=== PATIENT | female | born 1965 | race Caucasian/White ===

== ENCOUNTER → 2016-09-09 | Outpatient (CLI) | payer BC ==
--- NOTE | 2016-09-09 08:52 | REPMRS ---
Patient History The patient states she has not had a clinical breast exam in over a year. Patient is postmenopausal and had first child at age 29. Family history of prostate cancer in father at age 50 or over. Digital Woman Screen Mammo: September 09, 2016 - Exam #: [id number] Bilateral CC and MLO view(s) were taken. Technologist: Hazel Manzo Technologist Prior study comparison: August 05, 2015, digital woman screen mammo performed at [facility]. July 30, 2014, digital woman screen mammo performed at [facility]. June 02, 2011, bilateral bilat screen digital mammo performed at [facility]. FINDINGS: The breast tissue is heterogeneously dense. This may lower the sensitivity of mammography. There has been no change in the appearance of the mammogram from the prior studies. There is a moderate amount of residual fibroglandular tissue which is fairly symmetric. There is no interval development of dominant mass, architectural distortion, or clustered microcalcification typical of malignancy. Scattered lymph nodes are seen in the axillae. No significant changes when compared with prior studies. ASSESSMENT: BI-RADS/ACR category 2 mammogram. Benign finding(s). Recommendation Routine screening mammogram in 1 year (for women over age 40). This mammogram was interpreted with the aid of an FDA-approved computer-aided dectection system. A. Negative x-ray reports should not delay biopsy if a dominant or clinically suspicious mass is present. B. Four to eight percent of cancers are not identified by mammography. C. Adenosis and dense breast may obscure an underlying neoplasm. Electronically Signed By: Beau Martin MD 09/09/16 [id number]
== END ==
LOC: M WHC 08:19
PROVIDERS: ATTEND Family Medicine
DX: Z12.31 Encounter for screening mammogram for malignant neoplasm of breast (principal)

== ENCOUNTER → 2016-11-09 | Outpatient (REF) | payer BC | LOC: M LAB REF 13:55 | PROVIDERS: ATTEND Family Medicine | DX: Z01.419 Encounter for gynecological examination (general) (routine) without abnormal findings (principal) ==

== ENCOUNTER → 2017-09-25 | Outpatient (REF) | payer BC | LOC: M LAB REF 08:50 | DX: R30.0 Dysuria (principal) | CPT/HCPCS: 87186 ==

== ENCOUNTER → 2017-11-24 | Outpatient (REF) | payer BC | LOC: M LAB REF 09:24 | DX: Z12.4 Encounter for screening for malignant neoplasm of cervix (principal) | CPT/HCPCS: G0123 ==

== ENCOUNTER → 2018-02-02 | Outpatient (CLI) | payer BC | LOC: M WHC 08:04 | DX: Z12.31 Encounter for screening mammogram for malignant neoplasm of breast (principal) | CPT/HCPCS: 77067 ==

== ENCOUNTER → 2018-03-07 | Outpatient (REF) | payer BC ==
[2018-03-07 13:24] LABS: APPEARANCE, URINE HAZY (CLEAR); BACTERIA, URINE AUTO 2+ (NEGATIVE); BILIRUBIN, URINE AUTO NEGATIVE (NEGATIVE); BLOOD, URINE BLOOD NEGATIVE (NEGATIVE); COLOR, URINE AMBER (YELLOW); GLUCOSE, URINE (UA) AUTO NEGATIVE (NEGATIVE); KETONE, URINE AUTO NEGATIVE (NEGATIVE); LEUKOCYTE ESTERASE, URINE AUTO 2+ (NEGATIVE); MUCUS, URINE SMALL (NEGATIVE); NITRITE, URINE AUTO POSITIVE (NEGATIVE); PROTEIN, URINE AUTO NEGATIVE (NEGATIVE); RBC, URINE AUTO 5 /HPF (0-3); SPECIFIC GRAVITY URINE AUTO 1.023 (1.002-1.035); SQUAMOUS EPITHELIAL CELL UR AU 2 /HPF (0-6); WBC, URINE AUTO 108 /HPF (0-3)
== END ==
LOC: M LAB REF 12:48
DX: R30.0 Dysuria (principal)
CPT/HCPCS: 81001

== ENCOUNTER 2018-05-19 08:51 | Day surgery (SDC) | payer BC ==
[2018-05-19] MEDS: NS 1,000 ML IV (09:56)
[2018-05-19] MEDS ORDERED: PROPOFOL 200 MG/20 ML VIAL As Ordered ×2 (10:15→10:22)
== END 2018-05-19 11:30 | disposition home or self-care (01) ==
LOC: M OPP 08:51
DX: Z12.11 Encounter for screening for malignant neoplasm of colon (principal); Z86.010 Personal history of colon polyps; D12.3 Benign neoplasm of transverse colon; D12.2 Benign neoplasm of ascending colon; K64.8 Other hemorrhoids; Z80.0 Family history of malignant neoplasm of digestive organs; Z78.0 Asymptomatic menopausal state
CPT/HCPCS: 45385

== ENCOUNTER 2018-10-07 17:34 | Emergency (ER) | payer BC ==
[~2018-10-07] VITALS: Ht 157.5 cm; Wt 54.1 kg
[~2018-10-07 17:34] MED LIST: HAIR1TAB5 PO; MULT1TAB10 PO; VIAC8.5C PO
--- NOTE | 2018-10-07 19:19 | REPVR ---
EXAM: US Duplex Left Upper Extremity Veins, Limited EXAM DATE/TIME: 10/07/2018 7:06 PM CLINICAL HISTORY: 52 years old, female; Pain; Arm; Left; Additional info: Discoloration TECHNIQUE: Imaging protocol: Real-time Duplex ultrasound of the Left Upper Extremity with 2-D soni scale, color Doppler flow and spectral waveform analysis. Limited exam focused on the left upper extremity veins. COMPARISON: No relevant prior studies available. FINDINGS: Left deep veins: Internal jugular, subclavian, axillary and brachial veins patent without thrombus. Normal compressibility, augmentation response and/or Doppler waveforms. Left superficial veins: Visualized cephalic and basilic veins patent without thrombus. Soft tissues: Unremarkable. IMPRESSION: No sonographic evidence of deep vein thrombosis. Electronically signed by: Lucas Henry On 10/07/2018 19:19:17 PM
[2018-10-07] MEDS ORDERED: ASPI81TA85 PO (19:33)
[2018-10-07 19:44] VITALS: BP 123/77
== END 2018-10-07 19:49 | disposition home or self-care (01) ==
LOC: M ED 17:34
DX: I73.9 Peripheral vascular disease, unspecified (principal); Z79.899 Other long term (current) drug therapy

== ENCOUNTER → 2018-11-24 | Outpatient (REF) | payer BC ==
[~2018-11-24] MED LIST changes: +ASPI81TA85 PO
[2018-11-29 14:58] LABS: HPV HYBRID CAPTURE II Negative (NEGATIVE)
== END ==
LOC: M LAB REF 13:38
PROVIDERS: ATTEND Physician Assistant Medical
DX: Z12.4 Encounter for screening for malignant neoplasm of cervix (principal)
CPT/HCPCS: 87624; G0123

== ENCOUNTER → 2020-03-08 | Outpatient (CLI) | payer BC ==
[~2020-03-08] MED LIST changes: -ASPI81TA85 PO; +ASPI81TA86 PO; -VIAC8.5C PO; +VIACTIV 500-5001 CHW PO
[2020-03-08 10:54] LABS: BASO % 0.4 % (0.0-1.0); EOS # 0.1 10^3/uL (0.0-0.5); EOS % 1.4 % (0.0-3.0); HEMATOCRIT 41.4 % (36.0-47.0); LYMPH # 1.6 10^3/uL (1.5-5.0); LYMPH % 27.5 % (24.0-44.0); MEAN CORPUSCULAR HEMOGLOBIN 33.3 pg (27.0-33.0); MEAN CORPUSCULAR HGB CONC 33.8 g/dl (32.0-36.5); MEAN CORPUSCULAR VOLUME 98.6 fl (80.0-96.0); MONO # 0.6 10^3/uL (0.0-0.8); MONO % 10.1 % (0.0-5.0); NEUTROPHILS # 3.4 10^3/uL (1.5-8.5); NEUTROPHILS % 60.2 % (36.0-66.0); PLATELET COUNT, AUTOMATED 292 10^3/uL (150-450); WHITE BLOOD COUNT 5.7 10^3/uL (4.0-10.0)
[2020-03-08 11:30] LABS: ALBUMIN 3.9 GM/DL (3.2-5.2); ALT/SGPT 18 U/L (12-78); BILIRUBIN,TOTAL 0.7 MG/DL (0.2-1.0); BLOOD UREA NITROGEN 16 MG/DL (7-18); CALCIUM LEVEL 9.1 MG/DL (8.5-10.1); CARBON DIOXIDE LEVEL 32 MEQ/L (21-32); CHLORIDE LEVEL 106 MEQ/L (98-107); CHOLESTEROL LEVEL 180 MG/DL (<200); CHOLESTEROL RISK RATIO 2.045 (<5); CREATININE FOR GFR 0.76 MG/DL (0.55-1.30); FREE T4 1.07 NG/DL (0.76-1.46); GLOMERULAR FILTRATION RATE > 60.0 (>51); GLUCOSE, FASTING 74 MG/DL (70-100); HDL CHOLESTEROL 88 MG/DL (>40); LDL CHOLESTEROL 82 MG/DL (<100); NON-HDL-C 92 MG/DL; POTASSIUM SERUM 4.3 MEQ/L (3.5-5.1); SODIUM LEVEL 141 MEQ/L (136-145); TRIGLYCERIDES LEVEL 51 MG/DL (<150)
== END ==
LOC: M LAB 09:51
PROVIDERS: ATTEND Nurse Practitioner Family
DX: Z00.00 Encounter for general adult medical examination without abnormal findings (principal)

== ENCOUNTER → 2020-03-14 | Outpatient (CLI) | payer BC ==
--- NOTE | 2020-03-14 12:06 | REPMRS ---
Patient History The patient states she has not had a clinical breast exam in over a year. Patient is postmenopausal and had first child at age 29. Family history of prostate cancer at age 50 or over in father. No Hormone Replacement Therapy Digital Woman Screen Mammo: March 14, 2020 - Exam #: [id number] Bilateral CC and MLO view(s) were taken. Technologist: Adriana Wright, Technologist Prior study comparison: February 02, 2018, bilateral digital woman screen mammo performed at [facility]. September 09, 2016, digital woman screen mammo performed at [facility]. August 05, 2015, digital woman screen mammo performed at [facility]. FINDINGS: The breast tissue is heterogeneously dense. This may lower the sensitivity of mammography. The Volpara volumetric breast density category is: C. There is a moderate amount of heterogeneously dense fibroglandular tissue which is fairly symmetric. There is no interval development of dominant mass, architectural distortion, or grouped microcalcification typical of malignancy. There has been no change in the appearance of the mammogram from the prior studies. 3-D tomosynthesis shows no additional findings. Assessment: BI-RADS/ACR category 1 mammogram. Negative Mammogram. Recommendation Routine screening mammogram of both breasts in 1 year (for women over age 40). This patient's Lifetime Breast Cancer RIsk is estimated at 9.4 %. This mammogram was interpreted with the aid of an FDA-approved computer-aided dectection system. Electronically Signed By: Santy Nobles MD 03/14/20 [id number]
== END ==
LOC: M WHC 08:09
PROVIDERS: ATTEND Family Medicine
DX: Z12.31 Encounter for screening mammogram for malignant neoplasm of breast (principal)

== ENCOUNTER → 2020-06-04 | Outpatient (REF) | payer BC | LOC: M LAB REF 17:02 | PROVIDERS: ATTEND Nurse Practitioner Family | DX: R35.0 Frequency of micturition (principal) ==

== ENCOUNTER → 2021-12-10 | Outpatient (CLI) | payer BC, OTHER | LOC: M WHC 07:33 | PROVIDERS: ATTEND Nurse Practitioner Family | DX: Z12.31 Encounter for screening mammogram for malignant neoplasm of breast (principal) ==

== ENCOUNTER → 2022-08-31 | Outpatient (CLI) | payer BC ==
[2022-08-31 11:42] LABS: BASO % 0.4 % (0.0-1.0); EOS # 0.1 10^3/uL (0.0-0.5); EOS % 0.9 % (0.0-3.0); HEMATOCRIT 42.9 % (36.0-47.0); HEMOGLOBIN 14.1 g/dl (12.0-15.5); LYMPH # 1.8 10^3/uL (1.5-5.0); LYMPH % 19.9 % (24.0-44.0); MEAN CORPUSCULAR HEMOGLOBIN 32.9 pg (27.0-33.0); MEAN CORPUSCULAR HGB CONC 32.9 g/dl (32.0-36.5); MEAN CORPUSCULAR VOLUME 100.2 fl (80.0-96.0); MONO # 0.6 10^3/uL (0.0-0.8); MONO % 6.8 % (2.0-8.0); NEUTROPHILS # 6.5 10^3/uL (1.5-8.5); NEUTROPHILS % 71.8 % (36.0-66.0); PLATELET COUNT, AUTOMATED 295 10^3/uL (150-450); RED BLOOD COUNT 4.28 10^6/uL (4.00-5.40); WHITE BLOOD COUNT 9.1 10^3/uL (4.0-10.0)
[2022-08-31 12:15] LABS: IRON (FE) 77 UG/DL (50-170); TOTAL IRON BINDING CAPACITY 296 UG/DL (250-425)
[2022-08-31 12:19] LABS: ALKALINE PHOSPHATASE 77 U/L (46-116); ALT/SGPT 17 U/L (7.0-40); AST/SGOT 25 U/L (<34); BILIRUBIN,TOTAL 0.5 MG/DL (0.3-1.2); BLOOD UREA NITROGEN 20 MG/DL (9-23); CALCIUM LEVEL 8.8 MG/DL (8.5-10.1); CARBON DIOXIDE LEVEL 29 MMOL/L (20-31); CHLORIDE LEVEL 103 MMOL/L (98-107); CHOLESTEROL LEVEL 165 MG/DL (<200); CHOLESTEROL RISK RATIO 2.08 (<5); CREATININE FOR GFR 0.65 MG/DL (0.55-1.30); FERRITIN 56.8 NG/ML (7.3-270.7); GLOMERULAR FILTRATION RATE > 60.0 (>51); GLUCOSE, FASTING 79 MG/DL (60-100); HDL CHOLESTEROL 79.1 MG/DL (>40); LDL CHOLESTEROL 76.1 MG/DL (<100); NON-HDL-C 86 MG/DL; POTASSIUM SERUM 4.5 MMOL/L (3.5-5.1); SODIUM LEVEL 138 MMOL/L (136-145); THYROID STIMULATING HORMONE 0.697 uIU/ML (0.55-4.78); TOTAL 25(OH) VITAMIN D 23.4 NG/ML (20.0-100.0); TRIGLYCERIDES LEVEL 49 MG/DL (<150)
== END ==
LOC: M LAB 11:11
PROVIDERS: ATTEND Nurse Practitioner Family
DX: Z00.00 Encounter for general adult medical examination without abnormal findings (principal); R53.83 Other fatigue

== ENCOUNTER → 2022-10-05 | Outpatient (REF) | payer BC | LOC: M LAB REF 18:16 | PROVIDERS: ATTEND Nurse Practitioner Family | DX: Z12.4 Encounter for screening for malignant neoplasm of cervix (principal); R87.610 Atypical squamous cells of undetermined significance on cytologic smear of cervix (ASC-US) | CPT/HCPCS: 87624; G0123 ==

== ENCOUNTER → 2023-01-08 | Outpatient (CLI) | payer BC | LOC: M WHC 07:00 | PROVIDERS: ATTEND Nurse Practitioner Family | DX: Z12.31 Encounter for screening mammogram for malignant neoplasm of breast (principal) ==

== ENCOUNTER 2023-07-23 10:02 | Day surgery (SDC) | payer BC ==
[~2023-07-23] VITALS: Ht 157.5 cm; Wt 56.7 kg
[~2023-07-23 10:02] MED LIST changes: +NS 1,000 ML IV ONE
[2023-07-23] MEDS ORDERED: propofoL 200 MG/20 ML VIAL As Ordered ONE (10:39)
[2023-07-23] MEDS ORDERED: LIDOCAINE 2% 100MG/5ML SDV (FOR ANES.) As Ordered ONE (10:39)
[2023-07-23 11:54] VITALS: TEMP 97.5
[2023-07-23 12:14] VITALS: BP 116/57; O2SAT 97
== END 2023-07-23 12:15 | disposition home or self-care (01) ==
LOC: M OPP 10:02
PROVIDERS: ATTEND Internal Medicine Gastroenterology
DX: Z12.11 Encounter for screening for malignant neoplasm of colon (principal); Z86.010 Personal history of colon polyps; Z80.0 Family history of malignant neoplasm of digestive organs; K64.8 Other hemorrhoids; Q43.8 Other specified congenital malformations of intestine

== ENCOUNTER → 2023-10-12 | Outpatient (REF) | payer BC ==
[~2023-10-12] MED LIST changes: -NS 1,000 ML IV ONE
== END ==
LOC: M LAB REF 18:03
PROVIDERS: ATTEND Nurse Practitioner Family
DX: Z12.4 Encounter for screening for malignant neoplasm of cervix (principal); R87.610 Atypical squamous cells of undetermined significance on cytologic smear of cervix (ASC-US)
CPT/HCPCS: 87624; G0123

== ENCOUNTER → 2024-09-27 | Outpatient (CLI) | payer OTHER ==
[2024-09-27 11:27] LABS: BASO % 0.6 % (0.0-1.0); EOS # 0.2 10^3/uL (0.0-0.5); EOS % 2.5 % (0.0-3.0); HEMATOCRIT 41.7 % (36.0-47.0); HEMOGLOBIN 13.9 g/dl (12.0-15.5); LYMPH % 31.7 % (24.0-44.0); MEAN CORPUSCULAR HEMOGLOBIN 32.6 pg (27.0-33.0); MEAN CORPUSCULAR HGB CONC 33.3 g/dl (32.0-36.5); MEAN CORPUSCULAR VOLUME 97.9 fl (80.0-96.0); MONO # 0.6 10^3/uL (0.0-0.8); MONO % 8.7 % (2.0-8.0); NEUTROPHILS # 3.5 10^3/uL (1.5-8.5); NEUTROPHILS % 56.3 % (36.0-66.0); PLATELET COUNT, AUTOMATED 346 10^3/uL (150-450); RED BLOOD COUNT 4.26 10^6/uL (4.00-5.40); WHITE BLOOD COUNT 6.3 10^3/uL (4.0-10.0)
[2024-09-27 11:59] LABS: IRON (FE) 121 UG/DL (50-170); PERCENT SATURATION 45.3 % (13.2-45.0); TOTAL IRON BINDING CAPACITY 267 UG/DL (250-425)
[2024-09-27 12:00] LABS: ALBUMIN 3.6 G/DL (3.2-5.2); ALKALINE PHOSPHATASE 72 U/L (35-104); ALT/SGPT 19 U/L (7.0-40); AST/SGOT 15 U/L (<34); BILIRUBIN,TOTAL 0.5 MG/DL (0.3-1.2); BLOOD UREA NITROGEN 18 MG/DL (9-23); CALCIUM LEVEL 8.7 MG/DL (8.3-10.6); CARBON DIOXIDE LEVEL 28 MMOL/L (20-31); CHLORIDE LEVEL 106 MMOL/L (98-107); CHOLESTEROL LEVEL 155 MG/DL (<200); CHOLESTEROL RISK RATIO 2.47 (<5); CREATININE FOR GFR 0.71 MG/DL (0.55-1.30); GLOMERULAR FILTRATION RATE > 60.0 (>45); GLUCOSE, FASTING 77 MG/DL (74-106); HDL CHOLESTEROL 62.6 MG/DL (>40); LDL CHOLESTEROL 79.6 MG/DL (<100); NON-HDL-C 92.4 MG/DL; POTASSIUM SERUM 4.1 MMOL/L (3.5-5.1); SODIUM LEVEL 142 MMOL/L (136-145); TOTAL PROTEIN 6.6 G/DL (5.7-8.2); TRIGLYCERIDES LEVEL 64 MG/DL (<150)
[2024-09-27 12:03] LABS: FERRITIN 86.2 NG/ML (7.3-270.7); FREE T4 1.13 NG/DL (0.89-1.76); THYROID STIMULATING HORMONE 1.657 uIU/ML (0.55-4.78)
[2024-09-27 12:04] LABS: TOTAL 25(OH) VITAMIN D 52.2 NG/ML (20.0-100.0)
== END ==
LOC: M PLALAB 07:12
PROVIDERS: ATTEND Nurse Practitioner Family
DX: Z00.00 Encounter for general adult medical examination without abnormal findings (principal); L65.9 Nonscarring hair loss, unspecified

== ENCOUNTER → 2024-11-29 | Outpatient (CLI) | payer OTHER | LOC: M WHC 07:18 | PROVIDERS: ATTEND Family Medicine | DX: Z12.31 Encounter for screening mammogram for malignant neoplasm of breast (principal) ==

== ENCOUNTER → 2025-03-08 | Outpatient (CLI) | payer OTHER | LOC: M WUC 11:02 | PROVIDERS: ATTEND Nurse Practitioner Family | DX: M79.642 Pain in left hand (principal) ==